=== PATIENT | female | born 1990 | race Caucasian/White ===

== ENCOUNTER → 2016-10-31 | Outpatient (CLI) | payer MEDICARE, OTHER ==
--- NOTE | ~2016-10-31 | US80 ---
[facility] A Service of [facility] & [facility] RADIOLOGY TEXT RESULTS PATIENT: ELISSA CALDERON LOCATION: [facility] : 86 UNIT #: [id number] AGE: [address]: Xochitl Ball MD SEX: F ORDER DR: [id number] [facility] [address] [place], [place] [address] [id number] O MR#: [id number] Acc #: [id number] NAME: ELISSA CALDERON. : 1990 SEX: F STUDY DATE/TIME: 10/31/2016 14:15 UNIT: [facility] ROOM: STUDY DESCRIPTION: US Kidney Unilateral Complete Attending Physician: Xochitl Ball M.D. Referring Physician: Xochtil Ball M.D. Ordering Physician: Xochitl Ball M.D. Primary Care Physician: Roger Mike MEDICAL IMAGING REPORT This report is preliminary unless electronic signature is present EXAM Renal ultrasound INDICATION Hematuria. 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 She reports left flank pain for 2 days. TECHNIQUE Pitts-scale and color Doppler sonographic images were obtained through the patient's left kidney and bladder. FINDINGS This patient's left kidney is enlarged as would be expected in a patient who is status post right nephrectomy. The kidney measures up to 16.8 cm in length. Patient is noted to have hydronephrosis. This was also present on the prior study from October 12, 2015. She does have some shadowing stones within the left kidney with 1 stone seen within the inferior pole measuring up to 1.3 cm. Patient's urinary bladder appears unremarkable. IMPRESSION Patient has persistent mild left-sided hydronephrosis. Grossly I think it is stable when compared to October 12, 2015. Patient also appears to have a stone within the inferior pole of the left kidney, given persistent hydronephrosis I would suggest further evaluation with CT of the abdomen and pelvis. Dictated by... Paris Keller M.D. THIS IS AN ELECTRONICALLY VERIFIED REPORT Paris Keller M.D. at 11/06/2016 1:15 PM AFF/rnr [facility]. [facility] A Service of [facility] & [facility] RADIOLOGY TEXT RESULTS PATIENT: ELISSA CALDERON LOCATION: [facility] #: [id number] : [birth year] UNIT #: [id number] AGE: [address]: Xochitl Ball MD SEX: F ORDER DR: TD: 11/01/2016 04:16 JOB #: [id number] MEDICAL IMAGING REPORT COPY
== END | disposition home or self-care (01) ==
LOC: CGUS 14:07
DX: R31.9 Hematuria, unspecified (principal); N13.30 Unspecified hydronephrosis
CPT/HCPCS: 76770